=== PATIENT | female | born 1950 | race Caucasian/White ===

== ENCOUNTER 2021-11-24 11:06 | Outpatient (REF) | payer MEDICARE, BC, SELFPAY ==
--- NOTE | ~2021-11-24 | XR_ITS ---
EXAMINATION: XR HAND, LEFT CLINICAL INFORMATION: Osteoarthritis COMPARISON: None TECHNIQUE: PA, lateral, and oblique views of the left hand. FINDINGS: No acute fracture or dislocation. Degenerative changes of the hand worst involving the fourth proximal interphalangeal joint where it is severe and to a lesser extent involving the distal interphalangeal joints. Soft tissues are unremarkable. XR/XR hand LT min 3V IMPRESSION: Degenerative changes of the hand worst involving the fourth proximal interphalangeal joint where it is severe and to a lesser extent involving the distal interphalangeal joints.
--- NOTE | ~2021-11-24 | XR_ITS ---
EXAMINATION: XR HAND, RIGHT CLINICAL INFORMATION: Arthritis COMPARISON: None TECHNIQUE: PA, lateral, and oblique views of the right hand. FINDINGS: No acute fracture or dislocation. Moderate to advanced degenerative changes of the hand worst involving the distal interphalangeal joints. Soft tissues are unremarkable. XR/XR hand RT min 3V IMPRESSION: Moderate to advanced degenerative changes of the hand worst involving the distal interphalangeal joints.
[2021-11-24 13:38] LABS: MANUAL DIFF FLAG NO
[2021-11-24 13:42] LABS: Basophils Percent Auto 0.4 % (0-2); Eosinophils Absolute Auto 0.1 X10*3/uL (0.0-0.4); Eosinophils Percent Auto 1.8 % (0-4); Hematocrit 39.8 % (37.0-47.0); Hemoglobin 12.6 g/dl (12.0-16.0); Imm Gran Abs Auto 0.01 X10*3/uL (0.00-0.03); Imm Gran Pct Auto 0.2 % (0.0-0.4); Lymphocytes Absolute Auto 2.2 X10*3/uL (1.2-4.9); Lymphocytes Percent Auto 40.1 % (20-40); Mean Corpuscular HGB Conc 31.7 g/dl (31.0-35.0); Mean Corpuscular Hemoglobin 29.1 pg (27.0-33.0); Mean Corpuscular Volume 91.9 fL (80.0-98.0); Mean Platelet Volume 10.9 fL (9.4-12.3); Monocytes Absolute Auto 0.5 X10*3/uL (0.1-1.2); Monocytes Percent Auto 8.2 % (2-11); Neutrophils Absolute Auto 2.7 x10*3/uL (2.0-8.3); Neutrophils Percent Auto 49.3 % (45-73); Platelet Count 221 X10*3/uL (160-400); Red Blood Count 4.33 X10*6/uL (4.20-5.50); Red Cell Distribution Width 13.8 % (11.0-16.0); White Blood Count 5.5 X10*3/uL (4.8-10.8)
[2021-11-24 13:50] LABS: C Reactive Protein 0.18 mg/dL (< or = 0.50); Rheumatoid Factor 18.8 IU/mL (<15.0)
[2021-11-24 14:19] LABS: Erythrocyte Sedimentation Rate 10 MM/HR (0-20)
[2021-11-26 14:37] LABS: Cyclic Citrullinated Peptide <16 UNITS
== END 2021-11-24 11:07 | disposition home or self-care (01) ==
LOC: HO.10HDL 11:06
PROVIDERS: PCP Internal Medicine; Visit Provider Internal Medicine Rheumatology
DX: M35.3 Polymyalgia rheumatica (principal); M19.041 Primary osteoarthritis, right hand; M19.042 Primary osteoarthritis, left hand
CPT/HCPCS: 36415; 73130; 85025; 85652; 86140; 86200; 86431; 99202; 99212

== ENCOUNTER → 2022-02-24 08:52 | Outpatient (BNVA) | payer MEDICARE, BC, SELFPAY | PROVIDERS: PCP Internal Medicine; Visit Provider Internal Medicine Rheumatology | DX: M35.3 Polymyalgia rheumatica (principal); M19.041 Primary osteoarthritis, right hand; M19.042 Primary osteoarthritis, left hand; Z87.891 Personal history of nicotine dependence; Z79.1 Long term (current) use of non-steroidal anti-inflammatories (NSAID) | CPT/HCPCS: 99212 ==

== ENCOUNTER 2022-08-20 08:27 | Outpatient (REF) | payer MEDICARE, BC, SELFPAY ==
[2022-08-20 11:23] LABS: Anion Gap 12 (12-20); Blood Urea Nitrogen 14 mg/dL (9-16); Calcium 9.9 mg/dL (8.4-10.2); Carbon Dioxide 28 mmol/L (22-29); Chloride 107 mmol/L (96-108); Estimated Glomerular Filt Rate > 60; Glucose Random 87 mg/dL (60-115); Potassium 4.7 mmol/L (3.3-5.1); Sodium 142 mmol/L (135-145)
== END 2022-08-20 08:28 | disposition home or self-care (01) ==
LOC: HO.LAB 08:27
PROVIDERS: PCP Internal Medicine; Visit Provider Nurse Practitioner Family
DX: Z79.899 Other long term (current) drug therapy (principal)
CPT/HCPCS: 36415; 80048

== ENCOUNTER → 2022-08-25 09:19 | Outpatient (BNVA) | payer MEDICARE, BC, SELFPAY | PROVIDERS: PCP Internal Medicine; Visit Provider Internal Medicine Rheumatology | DX: M19.049 Primary osteoarthritis, unspecified hand (principal); Z79.1 Long term (current) use of non-steroidal anti-inflammatories (NSAID) | CPT/HCPCS: 99212 ==